=== PATIENT | female | born 1960 | race Caucasian/White ===

== ENCOUNTER 2016-07-07 21:10 | Emergency (ER) | payer OTHER ==
--- NOTE | 2016-07-07 22:39 | DIAGNOSTIC IMAGING REPORT ---
PROCEDURE: XR ANKLE 3 OR 4 VIEWS - LEFT INDICATION: TRAUMA/INJURY TECHNIQUE: Four views. COMPARISON: None. FINDINGS: Osseous structures and joint spaces are normal. IMPRESSION: 1. Negative mild ankle.
--- NOTE | 2016-07-07 22:39 | DIAGNOSTIC IMAGING REPORT ---
PROCEDURE: XR SHOULDER 2 OR MORE VW-LEFT INDICATION: TRAUMA/INJURY TECHNIQUE: Three views. COMPARISON: None. FINDINGS: There are mild degenerative changes of the left acromioclavicular and glenohumeral joints. Osseous structures and joint spaces are otherwise normal. IMPRESSION: 1. Mild degenerative changes. 2. Otherwise negative left shoulder.
--- NOTE | 2016-07-07 22:47 | ED NURSING NOTES ---
Clinical Report - Nurses [facility] [address] [place] [address] 07/07/2016 21:09 Patient: ATA LINDSEY TRIAGE Triage time 21:12 Jul 07 2016. --21:12 Pooja Nassar Acuity: LEVEL 3. Chief Complaint: FALL OUT OF BED while walking, landed on their head and face down. SEPSIS SCREEN: Sepsis Screen: negative. Negative (no infection suspected/documented). EDMAR COMA SCORE: Edmar Coma Scale: 15- eyes open spontaneously (4); best verbal response- oriented x 4 (5); best motor response- obeys commands (6). --21:27 Pooja Nassar 21:24 07/07/16. BP: 146/75. HR: 83. RR: 20. O2 saturation: 93% on nasal cannula at 2 liters/minute. Temp: 98.8 F (oral). Pain level now: 710. --21:27 Pooja Nassar. Weight: 2.5 kg stated. Height/Length: 69 inches Per Patient. BMI: 0.8. --21:27 Pooja Nassar. Medications ClonazePAM Oral (Tablet 2 mg), 4x a day as needed. Cymbalta Oral (60mg PO QD). Gabapentin Oral 900mg, 3x a day. Lasix Oral 40 mg, daily. Methadone HCl Oral 20mg (Q 12hrs PRN pain). Vistaril Oral 25 mg (q6hrs PRN). --21:20 Pooja Nassar Lantus Subcutaneous. --21:21 Pooja Nassar Glipizide Oral. --21:21 Pooja Nassar Loratadine Oral. --21:21 Pooja Nassar MetFORMIN & Diet Manage Prod Oral. --21:21 Pooja Nassar Potassimin Oral. --21:21 Pooja Nassar Phenergan (Promethazine) Oral. --21:21 Pooja Nassar Reglan Oral. --21:22 Pooja Nassar Venlafaxine. --21:22 Pooja Nassar Dilaudid Oral. --21:23 Pooja Nassar Xarelto Oral (Tablet 20 mg). --21:32 Pooja Nassar. Medication/allergy information source: the patient and EMS. --:27 Pooja Nassar. Allergies Penicillins. --21:22 Pooja Nassar. History Arrived by EMS. Historian: EMS and patient. --21:12 Pooja Nassar Primary physician (Jennifer). Location of injuries: head, right shoulder and left shoulder. This occurred today. Occurred at retirement. ( Patient lives in assisted living facility. Per staff report patient fell this morning at 0800 am. Patient complained of some back and shoulder pain. Patient wanted to be seen at the hospital and stated she needed her anxiety medication which her doctor recently reduced.). Treatment ER RN: None. See EMS report. BP: 160 / 90. HR: 88. O2 saturation: 88 room air, placed on two liters. PAST MEDICAL HX: Immunizations: up-to-date. The patient has had a hysterectomy. SOCIAL HX: Former smoker, end date 2011. No alcohol use or drug use. No infectious disease exposure. NUTRITIONAL RISK ASSESSMENT: The nutritional risk assessment revealed no deficiencies. LEARNING NEEDS ASSESSMENT: The learning needs assessment revealed no barriers. FALL RISK ASSESSMENT: Fall risk assessment completed. Risk factors identified include patient history of fall and impairment of mobility. Fall interventions initiated. Patient placed on stretcher. Side rails up x2. Brakes on Bed in low position. Call light in reach of patient. Instructed not to get up without assistance. FUNCTIONAL ASSESSMENT: Functional assessment performed: requires total care with the activities of daily living; uses wheelchair- this mobility impairment is an ongoing problem. The patient is under physical therapist care for hers functional impairment. SKIN INTEGRITY ASSESSMENT: Skin integrity risk assessment completed. No skin integrity risk identified. --:27 Pooja Nassar. PROBLEMS: Abnormal EKG. GI Bleeding. Hyponatremia. Leukocytosis. CVA - Cerebrovascular Accident. Blood clot in right leg. Depression. Fibromyalgia. --:23 Pooja Nassar. ADDITIONAL SURGERIES: Amputation Below Knee. Hysterectomy. Tubal Ligation. --21:23 Pooja Nassar. Interventions ID band on patient. To treatment room. Transported via stretcher. --21:27 CesarioRogelioPooja. PHYSICAL ASSESSMENT GENERAL / NEURO / PSYCH: Alert. Oriented X 4. Appears in no acute distress. HEENT: ( Small bruise on left side of chin). RESPIRATORY: Respirations not labored. CVS: Normal heart rate and rhythm. GI / : Abdomen soft and nontender. EXTREMITIES: ( Pain in mid and lower back. Tenderness in left elbow and left shoulder. Pain in right shoulder). SKIN: Skin is warm and dry. --21:29 Pooja Nassar. NURSING PROGRESS NOTES campus monitor, pulse oximeter and NIBP monitor placed on patient; monitor alarms on. Patient gowned. Warming measures: blanket applied. Reassurance given to the patient. Two patient identifiers checked. Call light placed in reach. Side rails up x 1. Bed placed in lowest position. Brakes of bed on. Patient placed in chair. Brakes of chair on. Patient ready for evaluation- chart flagged and ED physician notified. --21:29 Pooja Nassar 21:30 07/07/2016 Site #1 started via IV in the right hand with an 20g angiocath, with aseptic technique and good blood return; one attempt. Blood drawn: rainbow set. Labeled in the presence of the patient and sent to the lab. Saline lock flushed with 10 mL saline. --21:30 CesarioUrsula sifuentesh Patient transported to radiology and CT by stretcher with tech. (21:30 Jul 07 2016). --21:30 Pooja Nassar ( Patient reports taking blood thinner, states she has a history of clots. Patient reports loss of her leg due to a clot.). --21:33 Cesario Pooja Patient returned from radiology and CT by stretcher with tech. (22:Jul 07 2016). --22:12 Pooja Nassar 22:12 07/07/16. BP: 128/82. HR: 85. RR: 20. O2 saturation: 93% on nasal cannula at 3 liters/minute. Pain level now: 3/10. Additional comments: Patient down to 88% on 2 L , bumped up to 3 L, provider notified . --22:12 Pooja Nassar 22:13 07/07/2016 Morphine IVP 4 mg given over 1 minute(s) via site #1. Allergies verified, confirmed 5 rights and sedative warning given to the patient. IV patency established. IV site checked: no pain, redness, or swelling. IV flushed thoroughly pre- and post-medication administration. IVP given by RN. --22:13 Pooja Nassar 22:56 07/07/16. BP: 132/58. HR: 84. RR: 20. O2 saturation: 90% on nasal cannula at 3 liters/minute. Pain level now: 07/30. --22:57 Pooja Nassar. DISPOSITION / DISCHARGE 23:16 07/07/16. BP: 125/59. HR: 84. RR: 20. O2 saturation: 90% on nasal cannula at 3 liters/minute. Temp: 98.5 F (oral). Pain level now: 07/30. --23:16 Pooja Nassar Condition at departure: stable. --23:16 Pooja Nassar 23:17 07/07/2016 Site #1 removed upon discharge. Catheter intact. Bandaid applied. --23:17 Pooja Nassar No learning barriers present. Discharge instructions provided and reviewed with the patient. Patient verbalized understanding. Written instructions provided in Bengali. ( Follow up with your PCP to address anxiety medication dosage. Use Ice or heat on affected areas as needed. Anti-inflammatories may be used as needed for pain.). The patient was discharged by the physician. She was discharged to the [facility] and unaccompanied at time of discharge. She left the Emergency Department via ambulance and on a stretcher. Driving (Ambulance). Transported via stretcher by EMS with O2. Report was given to an EMT/P in person. Report included patient's care, treatment, medications, reviewed medication reconcilliation, and condition (including any recent changes or anticipated changes). All questions were answered. Report was acknowledged and care was transferred. Patient's personal items; items were transported with the patient. --23:42 Pooja Nassar ( Provider aware of patient vitals, patient clear for discharge at this time). --23:42 Pooja Nassar. Locked/Released at 07/08/2016 0:36 by Pooja Nassar,
--- NOTE | 2016-07-07 22:47 | ED CLINICAL REPORT ---
Clinical Report - Physicians/Mid Levels [facility] [address] [place] [address] 07/07/2016 21:09 Patient: ATA LINDSEY Time Seen: 2109. Arrived- By ambulance. Historian- patient. HISTORY OF PRESENT ILLNESS Location of injuries- head, chin and left shoulder and left ankle. Chief Complaint: FALL. The injury occurred today this morning. (senior care). ( rolled over and fell out of bed). Fell out of bed. The patient complains of moderate pain. The patient sustained a blow to the head. No neck pain, loss of consciousness or seizure. Not dazed. (reports no other areas of pain/injury. no new numbness/tingling/weakness. 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 REVIEW OF SYSTEMS All systems otherwise negative, except as recorded above. PAST HISTORY See nurses notes. Tetanus immunization status is up-to-date. Medications: Xarelto Oral (Tablet 20 mg). Dilaudid Oral. Venlafaxine. Reglan Oral. Phenergan (Promethazine) Oral. Potassimin Oral. MetFORMIN & Diet Manage Prod Oral. Loratadine Oral. Glipizide Oral. Lantus Subcutaneous. ClonazePAM Oral (Tablet 2 mg), 4x a day as needed. Cymbalta Oral (60mg PO QD). Gabapentin Oral 900mg, 3x a day. Lasix Oral 40 mg, daily. Methadone HCl Oral 20mg (Q 12hrs PRN pain). Vistaril Oral 25 mg (q6hrs PRN). Allergies: Penicillins. SOCIAL HISTORY Former smoker. No alcohol use or drug use. No recent travel. Is a local resident. PHYSICAL EXAM Appearance: Alert. Oriented X3. No acute distress. Head: Head non-tender. No swelling of head. No Rivas's sign or raccoon eyes. (small 2 cm diameter area of ecchymosis to the left chin.). Eyes: Pupils equal, round and reactive to light. Pupillary exam: Right pupil round and reactive to light directly and consensually and with accommodation. Left pupil: round and reactive to light directly and consensually and with accommodation. EOM intact. ENT: No dental injury. No hemotympanum. Pharynx normal. No malocclusion. (No TMJ tenderness. No crepitus. No quinton abnormalities. No trismus.). Neck: No decreased ROM or muscle spasm in the neck. No pain with movement of head/neck. Painless ROM. Non-tender. No vertebral tenderness. CVS: Heart sounds normal. Pulses normal. Respiratory: Breath sounds normal. Chest nontender. Abdomen: No visible injury. Soft and nontender. Bowel sounds normal. No mass. Back: No tenderness. ROM normal. No tenderness, vertebral point tenderness, muscle spasm or limitation in ROM. Skin: Skin intact. Skin warm and dry. Normal skin color. Normal skin turgor. Extremities: Normal inspection. Pelvis stable. Extremities atraumatic. No lower extremity edema. (above the knee amputation to the RLE. Ankle on the left shows no acute osseous abnormalities. Neurovac intact with baseline decreased sensation due to prior CVA. Compartments soft. No overlying skin changes. non-tender. Shoulder with normal ROM. No tenderness. No acute osseous abnormalities. Compartments soft. No overlying skin changes. Neurovasc intact. No tenderness to the rest of the upper extremity. No other evidence of trauma.). Neuro: [place] Coma Scale: 15 (paralyzed)- eyes open spontaneously (4); best verbal response- oriented x 3 (5); best motor response- obeys commands (6). Oriented X 3. No motor deficit. LABS, X-RAYS, AND EKG Lt Shoulder X-ray: No fracture. Normal alignment. No bony lesion, air in the soft tissue or foreign body. Soft tissues normal. Joint spaces normal. Views: AP with external rotation, AP with internal rotation and axillary. Technique: good. The X-rays were independently viewed by me and interpreted contemporaneously by me. Ankle X-ray: No fracture. Normal alignment. No bony lesion or air in the soft tissue. Soft tissues normal. Joint spaces normal. Views: AP, lateral, mortise and oblique. Technique: good. The X-rays were independently viewed by me and interpreted contemporaneously by me. CT C-Spine: No acute findings. Soft tissue normal. No fracture or subluxation. No bony lesion. (without contrast). The study was independently viewed by me and interpreted by the radiologist. The study was discussed with the radiologist (via fax). CT Head: Normal study. No acute changes. No bony abnormalities. Head CT performed without contrast. The study was independently viewed by me and interpreted by the radiologist. The study was discussed with the radiologist (via fax). Laboratory Tests: CBC w Diff: (PARKER: 07/07/2016 21:30) ( MsgRcvd 07/07/2016 21:42) Final results Test Result Flag Units (Reference) WHITE BLOOD COUNT 9.1 K/uL (4.5-11.5) RED BLOOD COUNT 5.06 M/uL (4.00-5.20) HEMOGLOBIN 12.1 gm/dL (12.0-16.0) HEMATOCRIT 38.5 % (36.0-46.0) MEAN CELL VOLUME 76 L fL (80-100) MEAN CORPUSCULAR HGB 24 L pg (26-34) MEAN CORPUSCULAR HGB CONC 31 g/dL (31-37) RED CELL DISTRIBUTION WIDTH 14.8 % (11.6-14.8) PLATELET COUNT 259 K/uL (150-400) NEUTROPHIL % 64.9 % (50-75) LYMPH % 25.1 % (25-40) MONO % 5.5 % (3-14) EOSINOPHIL % 4.0 % (0-4) BASOPHIL % 0.5 % (0-2) PT with INR: (PARKER: 07/07/2016 21:30) ( MsgRcvd 07/07/2016 21:46) Final results Test Result Flag Units (Reference) INR 1.2 (0.8-1.2) Low Intensity Therapy: INR 1.5-2.0 PT range 18.5-23.1Mod.Intensity Therapy: INR 2.0-3.0 PT range 23.1-31.5High Intensity Therapy: INR 2.5-3.5 PT range 27.4-35.5High Intensity Therapy 2: INR 3.0-4.0 PT range 31.5-39.3 APTT 40 H SECONDS (24-34) CMP: (PARKER: 07/07/2016 21:30) ( MsgRcvd 07/07/2016 21:55) Final results Test Result Flag Units (Reference) GLUCOSE 134 H mg/dL (70-110) BUN 11 mg/dL (7-18) CREATININE 0.9 mg/dL (0.6-1.3) Estimated GFR >60 mL/min Estimated GFR- >60 mL/min Note: Persistent reduction over 3 months in eGFR<60 mL/min/1.73 m2 defines CKD. Patients with eGFR values>=60 mL/min/1.73 m2 may also have CKD if evidence ofpersistent proteinuria. Additional information may be foundat www.kidney.org. SODIUM 137 mmol/L (136-145) POTASSIUM 3.8 mmol/L (3.5-5.1) CHLORIDE 98 mmol/L (98-107) CARBON DIOXIDE 32 mmol/L (21-32) CALCIUM 8.7 mg/dL (8.5-10.1) TOTAL PROTEIN 7.4 g/dL (6.4-8.2) ALBUMIN 3.4 g/dL (3.3-5.0) BILIRUBIN, TOTAL 0.5 mg/dL (0.0-1.0) ALKALINE PHOSPHATASE 135 H U/L (46-116) AST (SGOT) 22 U/L (15-37) ALT (SGPT) 48 U/L (12-78) . PROGRESS AND PROCEDURES Course of Care: the patient is a pleasant 56-year-old female presenting for evaluation of fall. The fall had occurred early this morning. Patient had been evaluated by the senior care facility doctor at that time. No acute abdomen maladies are noted per EMS. Patient is still reporting pain to the shoulder and ankle. I have examined the patient's back and do not find any acute abnormalities noted. He did not report back pain to me personally. Patient without any neurovascular compromise at this time. Patient will be evalua. Patient is agreeable to the treatment plan. I did hear the patient was upset about being decreased on her benzodiazepine doses. Do not feel interfering with these medications being prescribed by her primary care doctor would be appropriate at this time. We'll defer to patient's primary care Dr. Pain medication has been ordered. Patient is nontoxic. Vital signs are unremarkable. Workup does not show any acute osseous have normalities. CT scan without any acute intracranial bleeds. Because of the patient's negative workup and continuednormal behavior here in the emergency department, while patient follow-up back at the senior care. Patient is an appropriate patient for senior care care given her situation. Do not feel further workup here in the emergency department or admission to the hospital is warranted at this time. I discussed the patient workup, diagnosis, home care, follow-up, and return precautions. All questions answered. The patient expressed understanding of these instructions and was agreeable to them. Prior to patient's discharge from the emergency department she is noted to be resting in bed and In no acute stress. She is neurovascularly intact. rest of examination continues to be benign. Disposition: Discharged. Condition: good. (Electronically signed by Orville Marley Dr. 07/12/2016 10:50)
--- NOTE | 2016-07-07 22:47 | ED NURSING NOTES ---
Clinical Report - Nurses [facility] [address] [place] [address] 07/07/2016 21:09 Patient: ATA LINDSEY TRIAGE Triage time 21:12 Jul 07 2016. --21:12 Pooja Nassar Acuity: LEVEL 3. Chief Complaint: FALL OUT OF BED while walking, landed on their head and face down. SEPSIS SCREEN: Sepsis Screen: negative. Negative (no infection suspected/documented). EDMAR COMA SCORE: Edmar Coma Scale: 15- eyes open spontaneously (4); best verbal response- oriented x 4 (5); best motor response- obeys commands (6). --21:27 Pooja Nassar 21:24 07/07/16. BP: 146/75. HR: 83. RR: 20. O2 saturation: 93% on nasal cannula at 2 liters/minute. Temp: 98.8 F (oral). Pain level now: 710. --21:27 Pooja Nassar. Weight: 2.5 kg stated. Height/Length: 69 inches Per Patient. BMI: 0.8. --21:27 Pooja Nassar. Medications ClonazePAM Oral (Tablet 2 mg), 4x a day as needed. Cymbalta Oral (60mg PO QD). Gabapentin Oral 900mg, 3x a day. Lasix Oral 40 mg, daily. Methadone HCl Oral 20mg (Q 12hrs PRN pain). Vistaril Oral 25 mg (q6hrs PRN). --21:20 Pooja Nassar Lantus Subcutaneous. --21:21 Pooja Nassar Glipizide Oral. --21:21 Pooja Nassar Loratadine Oral. --21:21 Pooja Nassar MetFORMIN & Diet Manage Prod Oral. --21:21 Pooja Nassar Potassimin Oral. --21:21 Pooja Nassar Phenergan (Promethazine) Oral. --21:21 Pooja Nassar Reglan Oral. --21:22 Pooja Nassar Venlafaxine. --21:22 Pooja Nassar Dilaudid Oral. --21:23 Pooja Nassar Xarelto Oral (Tablet 20 mg). --21:32 Pooja Nassar. Medication/allergy information source: the patient and EMS. --:27 Pooja Nassar. Allergies Penicillins. --21:22 Pooja Nassar. History Arrived by EMS. Historian: EMS and patient. --21:12 Pooja Nassar Primary physician (Jennifer). Location of injuries: head, right shoulder and left shoulder. This occurred today. Occurred at [facility]. ( Patient lives in assisted living facility. Per staff report patient fell this morning at 0800 am. Patient complained of some back and shoulder pain. Patient wanted to be seen at the hospital and stated she needed her anxiety medication which her doctor recently reduced.). Treatment SIGHT MOUNTER: None. See EMS report. BP: 160 / 90. HR: 88. O2 saturation: 88 room air, placed on two liters. PAST MEDICAL HX: Immunizations: up-to-date. The patient has had a hysterectomy. SOCIAL HX: Former smoker, end date 2011. No alcohol use or drug use. No infectious disease exposure. NUTRITIONAL RISK ASSESSMENT: The nutritional risk assessment revealed no deficiencies. LEARNING NEEDS ASSESSMENT: The learning needs assessment revealed no barriers. FALL RISK ASSESSMENT: Fall risk assessment completed. Risk factors identified include patient history of fall and impairment of mobility. Fall interventions initiated. Patient placed on stretcher. Side rails up x2. Brakes on Bed in low position. Call light in reach of patient. Instructed not to get up without assistance. FUNCTIONAL ASSESSMENT: Functional assessment performed: requires total care with the activities of daily living; uses wheelchair- this mobility impairment is an ongoing problem. The patient is under physical therapist care for hers functional impairment. SKIN INTEGRITY ASSESSMENT: Skin integrity risk assessment completed. No skin integrity risk identified. --:27 Pooja Nassar. PROBLEMS: Abnormal EKG. GI Bleeding. Hyponatremia. Leukocytosis. CVA - Cerebrovascular Accident. Blood clot in right leg. Depression. Fibromyalgia. --:23 Pooja Nassar. ADDITIONAL SURGERIES: Amputation Below Knee. Hysterectomy. Tubal Ligation. --21:23 Pooja Nassar. Interventions ID band on patient. To treatment room. Transported via stretcher. --21:27 CesarioRogelioPooja. PHYSICAL ASSESSMENT GENERAL / NEURO / PSYCH: Alert. Oriented X 4. Appears in no acute distress. HEENT: ( Small bruise on left side of chin). RESPIRATORY: Respirations not labored. CVS: Normal heart rate and rhythm. GI / : Abdomen soft and nontender. EXTREMITIES: ( Pain in mid and lower back. Tenderness in left elbow and left shoulder. Pain in right shoulder). SKIN: Skin is warm and dry. --21:29 Pooja Nassar. NURSING PROGRESS NOTES patternmaker apprentice metal, pulse oximeter and NIBP monitor placed on patient; monitor alarms on. Patient gowned. Warming measures: blanket applied. Reassurance given to the patient. Two patient identifiers checked. Call light placed in reach. Side rails up x 1. Bed placed in lowest position. Brakes of bed on. Patient placed in chair. Brakes of chair on. Patient ready for evaluation- chart flagged and ED physician notified. --21:29 Pooja Nassar 21:30 07/07/2016 Site #1 started via IV in the right hand with an 20g angiocath, with aseptic technique and good blood return; one attempt. Blood drawn: rainbow set. Labeled in the presence of the patient and sent to the lab. Saline lock flushed with 10 mL saline. --21:30 CesarioUrsula sifuentesh Patient transported to radiology and CT by stretcher with tech. (21:30 Jul 07 2016). --21:30 Pooja Nassar ( Patient reports taking blood thinner, states she has a history of clots. Patient reports loss of her leg due to a clot.). --21:33 Cesario Pooja Patient returned from radiology and CT by stretcher with tech. (22:Jul 07 2016). --22:12 Pooja Nassar 22:12 07/07/16. BP: 128/82. HR: 85. RR: 20. O2 saturation: 93% on nasal cannula at 3 liters/minute. Pain level now: 3/10. Additional comments: Patient down to 88% on 2 L , bumped up to 3 L, provider notified . --22:12 Pooja Nassar 22:13 07/07/2016 Morphine IVP 4 mg given over 1 minute(s) via site #1. Allergies verified, confirmed 5 rights and sedative warning given to the patient. IV patency established. IV site checked: no pain, redness, or swelling. IV flushed thoroughly pre- and post-medication administration. IVP given by RN. --22:13 Pooja Nassar 22:56 07/07/16. BP: 132/58. HR: 84. RR: 20. O2 saturation: 90% on nasal cannula at 3 liters/minute. Pain level now: 07/30. --22:57 Pooja Nassar. DISPOSITION / DISCHARGE 23:16 07/07/16. BP: 125/59. HR: 84. RR: 20. O2 saturation: 90% on nasal cannula at 3 liters/minute. Temp: 98.5 F (oral). Pain level now: 07/30. --23:16 Pooja Nassar Condition at departure: stable. --23:16 Pooja Nassar 23:17 07/07/2016 Site #1 removed upon discharge. Catheter intact. Bandaid applied. --23:17 Pooja Nassar No learning barriers present. Discharge instructions provided and reviewed with the patient. Patient verbalized understanding. Written instructions provided in Croatian. ( Follow up with your PCP to address anxiety medication dosage. Use Ice or heat on affected areas as needed. Anti-inflammatories may be used as needed for pain.). The patient was discharged by the physician. She was discharged to the [facility] and unaccompanied at time of discharge. She left the Emergency Department via ambulance and on a stretcher. Driving (Ambulance). Transported via stretcher by EMS with O2. Report was given to an EMT/P in person. Report included patient's care, treatment, medications, reviewed medication reconcilliation, and condition (including any recent changes or anticipated changes). All questions were answered. Report was acknowledged and care was transferred. Patient's personal items; items were transported with the patient. --23:42 Pooja Nassar ( Provider aware of patient vitals, patient clear for discharge at this time). --23:42 Pooja Nassar. Locked/Released at 07/08/2016 0:36 by Pooja Nassar,
--- NOTE | 2016-07-07 22:47 | ED CLINICAL REPORT ---
Clinical Report - Physicians/Mid Levels [facility] [address] [place] [address] 07/07/2016 21:09 Patient: ATA LINDSEY Time Seen: 2109. Arrived- By ambulance. Historian- patient. HISTORY OF PRESENT ILLNESS Location of injuries- head, chin and left shoulder and left ankle. Chief Complaint: FALL. The injury occurred today this morning. ([facility] ( rolled over and fell out of bed). Fell out of bed. The patient complains of moderate pain. The patient sustained a blow to the head. No neck pain, loss of consciousness or seizure. Not dazed. (reports no other areas of pain/injury. no new numbness/tingling/weakness. 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 REVIEW OF SYSTEMS All systems otherwise negative, except as recorded above. PAST HISTORY See nurses notes. Tetanus immunization status is up-to-date. Medications: Xarelto Oral (Tablet 20 mg). Dilaudid Oral. Venlafaxine. Reglan Oral. Phenergan (Promethazine) Oral. Potassimin Oral. MetFORMIN & Diet Manage Prod Oral. Loratadine Oral. Glipizide Oral. Lantus Subcutaneous. ClonazePAM Oral (Tablet 2 mg), 4x a day as needed. Cymbalta Oral (60mg PO QD). Gabapentin Oral 900mg, 3x a day. Lasix Oral 40 mg, daily. Methadone HCl Oral 20mg (Q 12hrs PRN pain). Vistaril Oral 25 mg (q6hrs PRN). Allergies: Penicillins. SOCIAL HISTORY Former smoker. No alcohol use or drug use. No recent travel. Is a local resident. PHYSICAL EXAM Appearance: Alert. Oriented X3. No acute distress. Head: Head non-tender. No swelling of head. No Rivas's sign or raccoon eyes. (small 2 cm diameter area of ecchymosis to the left chin.). Eyes: Pupils equal, round and reactive to light. Pupillary exam: Right pupil round and reactive to light directly and consensually and with accommodation. Left pupil: round and reactive to light directly and consensually and with accommodation. EOM intact. ENT: No dental injury. No hemotympanum. Pharynx normal. No malocclusion. (No TMJ tenderness. No crepitus. No quinton abnormalities. No trismus.). Neck: No decreased ROM or muscle spasm in the neck. No pain with movement of head/neck. Painless ROM. Non-tender. No vertebral tenderness. CVS: Heart sounds normal. Pulses normal. Respiratory: Breath sounds normal. Chest nontender. Abdomen: No visible injury. Soft and nontender. Bowel sounds normal. No mass. Back: No tenderness. ROM normal. No tenderness, vertebral point tenderness, muscle spasm or limitation in ROM. Skin: Skin intact. Skin warm and dry. Normal skin color. Normal skin turgor. Extremities: Normal inspection. Pelvis stable. Extremities atraumatic. No lower extremity edema. (above the knee amputation to the RLE. Ankle on the left shows no acute osseous abnormalities. Neurovac intact with baseline decreased sensation due to prior CVA. Compartments soft. No overlying skin changes. non-tender. Shoulder with normal ROM. No tenderness. No acute osseous abnormalities. Compartments soft. No overlying skin changes. Neurovasc intact. No tenderness to the rest of the upper extremity. No other evidence of trauma.). Neuro: [place] Coma Scale: 15 (paralyzed)- eyes open spontaneously (4); best verbal response- oriented x 3 (5); best motor response- obeys commands (6). Oriented X 3. No motor deficit. LABS, X-RAYS, AND EKG Lt Shoulder X-ray: No fracture. Normal alignment. No bony lesion, air in the soft tissue or foreign body. Soft tissues normal. Joint spaces normal. Views: AP with external rotation, AP with internal rotation and axillary. Technique: good. The X-rays were independently viewed by me and interpreted contemporaneously by me. Ankle X-ray: No fracture. Normal alignment. No bony lesion or air in the soft tissue. Soft tissues normal. Joint spaces normal. Views: AP, lateral, mortise and oblique. Technique: good. The X-rays were independently viewed by me and interpreted contemporaneously by me. CT C-Spine: No acute findings. Soft tissue normal. No fracture or subluxation. No bony lesion. (without contrast). The study was independently viewed by me and interpreted by the radiologist. The study was discussed with the radiologist (via fax). CT Head: Normal study. No acute changes. No bony abnormalities. Head CT performed without contrast. The study was independently viewed by me and interpreted by the radiologist. The study was discussed with the radiologist (via fax). Laboratory Tests: CBC w Diff: (PARKER: 07/07/2016 21:30) ( MsgRcvd 07/07/2016 21:42) Final results Test Result Flag Units (Reference) WHITE BLOOD COUNT 9.1 K/uL (4.5-11.5) RED BLOOD COUNT 5.06 M/uL (4.00-5.20) HEMOGLOBIN 12.1 gm/dL (12.0-16.0) HEMATOCRIT 38.5 % (36.0-46.0) MEAN CELL VOLUME 76 L fL (80-100) MEAN CORPUSCULAR HGB 24 L pg (26-34) MEAN CORPUSCULAR HGB CONC 31 g/dL (31-37) RED CELL DISTRIBUTION WIDTH 14.8 % (11.6-14.8) PLATELET COUNT 259 K/uL (150-400) NEUTROPHIL % 64.9 % (50-75) LYMPH % 25.1 % (25-40) MONO % 5.5 % (3-14) EOSINOPHIL % 4.0 % (0-4) BASOPHIL % 0.5 % (0-2) PT with INR: (PARKER: 07/07/2016 21:30) ( MsgRcvd 07/07/2016 21:46) Final results Test Result Flag Units (Reference) INR 1.2 (0.8-1.2) Low Intensity Therapy: INR 1.5-2.0 PT range 18.5-23.1Mod.Intensity Therapy: INR 2.0-3.0 PT range 23.1-31.5High Intensity Therapy: INR 2.5-3.5 PT range 27.4-35.5High Intensity Therapy 2: INR 3.0-4.0 PT range 31.5-39.3 APTT 40 H SECONDS (24-34) CMP: (PARKER: 07/07/2016 21:30) ( MsgRcvd 07/07/2016 21:55) Final results Test Result Flag Units (Reference) GLUCOSE 134 H mg/dL (70-110) BUN 11 mg/dL (7-18) CREATININE 0.9 mg/dL (0.6-1.3) Estimated GFR >60 mL/min Estimated GFR- >60 mL/min Note: Persistent reduction over 3 months in eGFR<60 mL/min/1.73 m2 defines CKD. Patients with eGFR values>=60 mL/min/1.73 m2 may also have CKD if evidence ofpersistent proteinuria. Additional information may be foundat www.kidney.org. SODIUM 137 mmol/L (136-145) POTASSIUM 3.8 mmol/L (3.5-5.1) CHLORIDE 98 mmol/L (98-107) CARBON DIOXIDE 32 mmol/L (21-32) CALCIUM 8.7 mg/dL (8.5-10.1) TOTAL PROTEIN 7.4 g/dL (6.4-8.2) ALBUMIN 3.4 g/dL (3.3-5.0) BILIRUBIN, TOTAL 0.5 mg/dL (0.0-1.0) ALKALINE PHOSPHATASE 135 H U/L (46-116) AST (SGOT) 22 U/L (15-37) ALT (SGPT) 48 U/L (12-78) . PROGRESS AND PROCEDURES Course of Care: the patient is a pleasant 56-year-old female presenting for evaluation of fall. The fall had occurred early this morning. Patient had been evaluated by the [facility] facility doctor at that time. No acute abdomen maladies are noted per EMS. Patient is still reporting pain to the shoulder and ankle. I have examined the patient's back and do not find any acute abnormalities noted. He did not report back pain to me personally. Patient without any neurovascular compromise at this time. Patient will be evalua. Patient is agreeable to the treatment plan. I did hear the patient was upset about being decreased on her benzodiazepine doses. Do not feel interfering with these medications being prescribed by her primary care doctor would be appropriate at this time. We'll defer to patient's primary care Dr. Pain medication has been ordered. Patient is nontoxic. Vital signs are unremarkable. Workup does not show any acute osseous have normalities. CT scan without any acute intracranial bleeds. Because of the patient's negative workup and continuednormal behavior here in the emergency department, while patient follow-up back at the [facility]. Patient is an appropriate patient for [facility] care given her situation. Do not feel further workup here in the emergency department or admission to the hospital is warranted at this time. I discussed the patient workup, diagnosis, home care, follow-up, and return precautions. All questions answered. The patient expressed understanding of these instructions and was agreeable to them. Prior to patient's discharge from the emergency department she is noted to be resting in bed and In no acute stress. She is neurovascularly intact. rest of examination continues to be benign. Disposition: Discharged. Condition: good. (Electronically signed by Orville Marley Dr. 07/12/2016 10:50)
--- NOTE | 2016-07-07 22:48 | ED ORDER SUMMARY ---
..... Patient: ATA LINDSEY OrderSheet [facility] VisitID: [id number] [address] [place] [address] 56y, F Registration Date/Time: 07/07/2016 ORDER SHEET Weight: 2.5 kg (stated) Allergies: Penicillins GENERAL ORDERS: CT Head wo Cont Urgent (21:07/07/2016 Kassy Cardoza) (Ack 21:26 AMcQuoid ER Tech1) (22:11 MCampbell) Shoulder 2V or more Left Urgent (21:07/07/2016 Kassy Cardoza) (Ack 21:26 AMcQuoid ER Tech1) (22:11 MCampbell) Ankle 3 or 4V Left Urgent (21:07/07/2016 Kassy Cardoza) (Ack 21:26 AMcQuoid ER Tech1) (22:11 MCampbell) CT Cervical Spine wo Cont Urgent (21:07/07/2016 Kassy Cardoza) (Ack 21:26 AMcQuoid ER Tech1) (22:11 MCampbell) CBC w Diff Urgent (21:07/07/2016 Kassy Cardoza) (Ack 21:26 AMcQuoid ER Tech1) (21:54 EHassan R.N.) CMP Urgent (21:07/07/2016 Kassy Cardoza) (Ack 21:26 AMcQuoid ER Tech1) (21:54 EHassan R.N.) Pulse oximeter (21:07/07/2016 aKssy Cardoza) (21:22 IJurca ER Tech1) PT with INR Urgent (21:07/07/2016 Kassy Cardoza) (Ack 21:28 AMcQuoid ER Tech1) (21:54 EHassan R.N.) PTT Urgent (21:07/07/2016 Kassy Cardoza) (Ack 21:28 AMcQuoid ER Tech1) (21:54 EHassan R.N.) MEDICATION ORDERS: IV FLUIDS: IV Saline Lock (21:07/07/2016 Kassy Cardoza) (21:30 HSoule) Morphine IV 4 mg (HIGH ALERT MEDICATION, NOW) (21:07/07/2016 Kassy Cardoza) (Ack 21:30 HSoule) (22:13 HSoule) ORDER SHEET NOTES: [Electronically signed by Pooja Nassar (00:36 07/08/2016)] [Electronically signed by Orville Marley Dr. (10:50 07/12/2016)] [Electronically locked/signed by Pooja Nassar (00:36 07/08/2016)]
--- NOTE | 2016-07-07 22:48 | ED ORDER SUMMARY ---
..... Patient: ATA LINDSEY OrderSheet [facility] VisitID: [id number] [address] [place] [address] 56y, F Registration Date/Time: 07/07/2016 ORDER SHEET Weight: 2.5 kg (stated) Allergies: Penicillins GENERAL ORDERS: CT Head wo Cont Urgent (21:07/07/2016 Kassy Cardoza) (Ack 21:26 AMcQuoid ER Tech1) (22:11 MCampbell) Shoulder 2V or more Left Urgent (21:07/07/2016 Kassy Cardoza) (Ack 21:26 AMcQuoid ER Tech1) (22:11 MCampbell) Ankle 3 or 4V Left Urgent (21:07/07/2016 Kassy Cardoza) (Ack 21:26 AMcQuoid ER Tech1) (22:11 MCampbell) CT Cervical Spine wo Cont Urgent (21:07/07/2016 Kassy Cardoza) (Ack 21:26 AMcQuoid ER Tech1) (22:11 MCampbell) CBC w Diff Urgent (21:07/07/2016 Kassy Cardoza) (Ack 21:26 AMcQuoid ER Tech1) (21:54 EHassan R.N.) CMP Urgent (21:07/07/2016 Kassy Cardoza) (Ack 21:26 AMcQuoid ER Tech1) (21:54 EHassan R.N.) Pulse oximeter (21:07/07/2016 Kassy Cardoza) (21:22 IJurca ER Tech1) PT with INR Urgent (21:07/07/2016 Kassy Cardoza) (Ack 21:28 AMcQuoid ER Tech1) (21:54 EHassan R.N.) PTT Urgent (21:07/07/2016 Kassy Cardoza) (Ack 21:28 AMcQuoid ER Tech1) (21:54 EHassan R.N.) MEDICATION ORDERS: IV FLUIDS: IV Saline Lock (21:07/07/2016 Kassy Cardoza) (21:30 HSoule) Morphine IV 4 mg (HIGH ALERT MEDICATION, NOW) (21:07/07/2016 Kassy Cardoza) (Ack 21:30 HSoule) (22:13 HSoule) ORDER SHEET NOTES: [Electronically signed by Pooja Nassar (00:36 07/08/2016)] [Electronically signed by Orville Marley Dr. (10:50 07/12/2016)] [Electronically locked/signed by Pooja Nassar (00:36 07/08/2016)]
--- NOTE | 2016-07-07 22:49 | DIAGNOSTIC IMAGING REPORT ---
PROCEDURE: CT CERVICAL SPINE W/O CONTRAST INDICATION: TRAUMA/INJURY TECHNIQUE: Noncontrast axial images with sagittal and coronal reformations. COMPARISON: None. FINDINGS: There are mild to moderate degenerative changes of the upper cervical facet joints. There is mild this space at C5-6. The rest of the osseous structures and disc spaces are normal. No evidence of an acute process or fracture. Alignment is normal. IMPRESSION: 1. Mild to moderate degenerative changes of the cervical spine. 2. No evidence of an acute process or fracture. 3. Findings discussed with Dr. Marley. All CT scans at this facility use dose modulation, iterative reconstruction, and/or weight-based dosing when appropriate to reduce radiation dose to as low as reasonably achievable.
--- NOTE | 2016-07-07 22:51 | DIAGNOSTIC IMAGING REPORT ---
PROCEDURE: CT HEAD WITHOUT CONTRAST INDICATION: TRAUMA/INJURY TECHNIQUE: Noncontrast axial images with sagittal and coronal reformations. COMPARISON: Compared to a head CT on 10/27/2011. FINDINGS: There is an old punctate lacunar infarct in the right thalamus. Brain and ventricles are otherwise normal. No evidence of an acute process or hemorrhage. Sinuses and mastoids are normal. IMPRESSION: 1. There is a punctate old lacunar infarct in the right thalamus. 2. Otherwise negative head CT. No evidence of acute process. 3. Findings discussed with Dr. Orville Freeman at [address] scans at this facility use dose modulation, iterative reconstruction, and/or weight-based dosing when appropriate to reduce radiation dose to as low as reasonably achievable.
--- NOTE | 2016-07-12 13:19 | ED MAR SUMMARY ---
..... Medication Administration Record [facility] [address] [place] [address] Patient: ATA LINDSEY Visit ID: [id number] 56y, F Weight: 2.5 kg Height/Length: 69 in BMI: 0.8 ALLERGIES: Penicillins Given 22:13 07/07/2016 Pooja Nassar, Medication Administered: MORPHINE [IVP], Dose: 4 mg IVP over 1 minute(s), Site: #1 right hand. Medication Ordered: Morphine IV 4 mg (HIGH ALERT MEDICATION, NOW).
--- NOTE | 2016-07-12 13:19 | ED MAR SUMMARY ---
..... Medication Administration Record [facility] [address] [place] [address] Patient: ATA LINDSEY Visit ID: [id number] 56y, F Weight: 2.5 kg Height/Length: 69 in BMI: 0.8 ALLERGIES: Penicillins Given 22:13 07/07/2016 Pooja Nassar, Medication Administered: MORPHINE [IVP], Dose: 4 mg IVP over 1 minute(s), Site: #1 right hand. Medication Ordered: Morphine IV 4 mg (HIGH ALERT MEDICATION, NOW).
--- NOTE | 2016-07-12 13:19 | ED MED RECONCILIATION SUMMARY ---
Patient: ATA LINDSEY Medication Reconciliation Report [facility] VisitID: [id number] [address] [place] [address] 56y, F Registration Date/Time: 07/07/2016 Weight: 2.5 kg Height/Length: 69 in. BMI: 0.8 ALLERGIES: Penicillins The patient's Home Medications are listed below: THE FOLLOWING MEDICATIONS NEED TO BE RECONCILED: ClonazePAM Oral (2 mg), 4x a day Cymbalta Oral, 60mg PO QD Dilaudid Oral Gabapentin Oral 900mg, 3x a day Glipizide Oral Lantus Subcutaneous Lasix Oral 40 mg, daily Loratadine Oral MetFORMIN & Diet Manage Prod Oral Methadone HCl Oral 20mg, Q 12hrs PRN pain Phenergan (Promethazine) Oral Potassimin Oral Reglan Oral Venlafaxine Vistaril Oral 25 mg, q6hrs PRN Xarelto Oral (20 mg) The source(s) of the original Home Medication information: patient EMS The following Medications were given to the patient in the Emergency Department: Morphine [IVP] IVP 4 mg, administered: 07/07/2016 10:13:00 PM The following Medications were prescribed to the patient: None.
--- NOTE | 2016-07-12 13:19 | ED MED RECONCILIATION SUMMARY ---
Patient: ATA LINDSEY Medication Reconciliation Report [facility] VisitID: [id number] [address] [place] [address] 56y, F Registration Date/Time: 07/07/2016 Weight: 2.5 kg Height/Length: 69 in. BMI: 0.8 ALLERGIES: Penicillins The patient's Home Medications are listed below: THE FOLLOWING MEDICATIONS NEED TO BE RECONCILED: ClonazePAM Oral (2 mg), 4x a day Cymbalta Oral, 60mg PO QD Dilaudid Oral Gabapentin Oral 900mg, 3x a day Glipizide Oral Lantus Subcutaneous Lasix Oral 40 mg, daily Loratadine Oral MetFORMIN & Diet Manage Prod Oral Methadone HCl Oral 20mg, Q 12hrs PRN pain Phenergan (Promethazine) Oral Potassimin Oral Reglan Oral Venlafaxine Vistaril Oral 25 mg, q6hrs PRN Xarelto Oral (20 mg) The source(s) of the original Home Medication information: patient EMS The following Medications were given to the patient in the Emergency Department: Morphine [IVP] IVP 4 mg, administered: 07/07/2016 10:13:00 PM The following Medications were prescribed to the patient: None.
== END 2016-07-07 23:42 ==
LOC: ED SRH 21:10
DX: S09.90XA Unspecified injury of head, initial encounter (principal); S09.93XA Unspecified injury of face, initial encounter; S49.90XA Unspecified injury of shoulder and upper arm, unspecified arm, initial encounter; S99.911A Unspecified injury of right ankle, initial encounter; W06.XXXA Fall from bed, initial encounter; Y93.89 Activity, other specified; Y99.8 Other external cause status; Y92.122 Bedroom in nursing home as the place of occurrence of the external cause; Z79.84 Long term (current) use of oral hypoglycemic drugs; Z88.0 Allergy status to penicillin